=== PATIENT | female | born 1975 | race Caucasian/White ===

== ENCOUNTER 2017-12-11 09:30 | Outpatient (CLI) | payer BC | END 2017-12-11 09:31 | disposition home or self-care (01) | LOC: BICMAMMO 09:30 | PROVIDERS: ATTEND Student in an Organized Health Care Education/Training Program | DX: Z12.31 Encounter for screening mammogram for malignant neoplasm of breast (principal); Z80.3 Family history of malignant neoplasm of breast | CPT/HCPCS: 77063; 77067 ==

== ENCOUNTER 2019-01-15 19:28 | Emergency (ER) | payer BC | END 2019-01-15 20:38 | disposition left against medical advice (07) | LOC: ERS 19:28 | DX: Z53.21 Procedure and treatment not carried out due to patient leaving prior to being seen by health care provider (principal) ==

== ENCOUNTER 2019-01-15 19:50 | Emergency (ER) | payer BC ==
[2019-01-15] MEDS ORDERED: Ondansetron PF 4 MG/2 ML Vial ONE (20:15)
[2019-01-15] MEDS ORDERED: Ketorolac Tromethamine 30 MG/ML VIAL ONE (20:15)
[2019-01-15 20:35] LABS: BHCG - Serum Negative (NEGATIVE); Pregs Control Background? CLEAR/WHITE (CLR/WHITE); Pregs Control Bar Appear? YES (CONTROL BAR)
[2019-01-15 20:38] LABS: Band 13 % (5-11); Eosinophils 2 % (0-10); Hemoglobin 15.3 g/dL (12.0-16.0); Lymphocytes 5 % (21-51); MDiff Complete? YES; Mean Corpuscular HGB CONC 35.1 g/dL (32.0-36.0); Mean Corpuscular Hemoglobin 32.8 pg (27.0-31.0); Mean Corpuscular Volume 93.5 fL (78.0-98.0); Mean Platelet Volume 8.1 fL (7.4-10.4); Monocytes 2 % (0-10); Neutrophil 78 % (42-75); Platelet Count 245 thou/uL (130-400); Platelet Morphology Comment Appears Adequate; RBC Distribution Width 11.4 % (11.5-14.5); Red Blood Cell (RBC) Count 4.66 mill/uL (4.20-5.40); White Blood Cell (WBC) Count 9.4 thou/uL (4.8-10.8)
[2019-01-15 20:53] LABS: ALT (SGPT) 19 U/L (8-55); AST (SGOT) 16 U/L (5-34); Alkaline Phosphatase 43 U/L (40-150); BUN (Urea Nitrogen) 13 mg/dL (7.0-18.7); Bilirubin, Total 0.9 mg/dL (0.2-1.2); Calc. Creatinine Clearance 0 mL/min (70-130); Calcium 8.9 mg/dL (7.8-10.44); Carbon Dioxide 21 mmol/L (22-29); Estimated GFR-MDRD 84; Glucose 102 mg/dL (70-105); Lipase 10 U/L (8-78); Protein, Total 6.7 g/dL (6.0-8.3)
[2019-01-15 20:54] LABS: Albumin 4.2 g/dL (3.5-5.0); Anion Gap 15 mmol/L (10-20); Chloride 107 mmol/L (98-107); Globulin 2.5 g/dL (2.4-3.5); Potassium 3.8 mmol/L (3.5-5.1); Sodium 139 mmol/L (136-145)
== END 2019-01-15 21:05 | disposition home or self-care (01) ==
LOC: SCSER 19:50
DX: R11.2 Nausea with vomiting, unspecified (principal); R19.7 Diarrhea, unspecified; F41.9 Anxiety disorder, unspecified; Z79.899 Other long term (current) drug therapy
CPT/HCPCS: 80053; 83690; 84703; 85025; 96361; 96374; 96375; J1885; J2405

== ENCOUNTER 2020-10-06 15:16 | Outpatient (CLI) | payer BC | END 2020-10-06 15:17 | disposition home or self-care (01) | LOC: BICMRI 15:16 | PROVIDERS: ATTEND Orthopaedic Surgery | DX: M22.2X1 Patellofemoral disorders, right knee (principal); R60.0 Localized edema ==

== ENCOUNTER 2022-07-16 07:32 | Outpatient (CLI) | payer OTHER | END 2022-07-16 07:33 | disposition home or self-care (01) | LOC: SCSMRI 07:32 | PROVIDERS: ATTEND Orthopaedic Surgery | DX: M47.22 Other spondylosis with radiculopathy, cervical region (principal); M43.12 Spondylolisthesis, cervical region; M50.122 Cervical disc disorder at C5-C6 level with radiculopathy | CPT/HCPCS: 72141 ==

== ENCOUNTER 2022-09-10 15:13 | Outpatient (CLI) | payer OTHER | END 2022-09-10 15:14 | disposition home or self-care (01) | LOC: SCSRAD 15:13 | PROVIDERS: ATTEND Family Medicine | DX: M47.812 Spondylosis without myelopathy or radiculopathy, cervical region (principal) | CPT/HCPCS: 72040 ==